=== PATIENT | female | born 1955 | race Two or more races ===

== ENCOUNTER 2021-07-03 09:46 | Outpatient (CLI) | payer OTHER | END 2021-07-03 11:19 | disposition home or self-care (01) | LOC: SONOGRAMA 09:46 | PROVIDERS: ATTEND Pathology Anatomic Pathology & Clinical Pathology | DX: D34 Benign neoplasm of thyroid gland (principal); E04.8 Other specified nontoxic goiter ==

== ENCOUNTER 2024-03-19 10:41 | Outpatient (CLI) | payer OTHER | END 2024-03-19 10:45 | disposition home or self-care (01) | LOC: SONOGRAMA 10:41 | PROVIDERS: ATTEND Pathology Anatomic Pathology & Clinical Pathology | DX: C73 Malignant neoplasm of thyroid gland (principal); E04.2 Nontoxic multinodular goiter ==

== ENCOUNTER 2024-09-17 11:09 | Outpatient (CLI) | payer OTHER | END 2024-09-17 11:10 | disposition home or self-care (01) | LOC: NUCLEAR 11:09 | PROVIDERS: ATTEND Internal Medicine Sports Medicine | DX: C73 Malignant neoplasm of thyroid gland (principal) | CPT/HCPCS: 78018; A9528 ==

== ENCOUNTER 2024-09-23 13:06 | Outpatient (CLI) | payer OTHER | END 2024-09-23 13:08 | disposition home or self-care (01) | LOC: NUCLEAR 13:06 | PROVIDERS: ATTEND Internal Medicine Sports Medicine | DX: C73 Malignant neoplasm of thyroid gland (principal) | CPT/HCPCS: 78018; A9528 ==